=== PATIENT | female | born 1940 | race Caucasian/White ===

== ENCOUNTER 2016-07-16 18:05 | Emergency (ER) | payer OTHER ==
--- NOTE | 2016-07-16 19:20 | PROVIDER DOCUMENTATION ---
HPI-Musculoskeletal Pain/Inj - GENERAL Chief Complaint: Extremity Pain Stated Complaint: BRUISE/KNOT Time Seen by Provider: 07/16/16 18:54 Source: patient - HX OF PRESENT ILLNESS-MUSKULOSKELTAL Nature of Presenting Problem: PT C/O OF PAIN TO HER UPPER RIGHT FOREARM THERE IS BRUISING PRESENT,TENDER TO TOUCH NO DEFORMITIES NOTED.PT DENIES HITTING HIT ON ANYTHING OR FALLING. Quality of Pain: reports: aching Severity in ED: mild Onset/Duration: 24 hours ago Timing: still present Modifying Factors: improves with: palpation Any recent injury?: No Locality of Occurance: Home Similar Symptoms Previously?: No Recently seen or treated by another doctor?: No - UPPER EXTREMITY PAIN/INJURY Extremities Pain Location: forearm: right Context / Method of Injury: reports: unknown Associated Symptoms: reports: denies symptoms Review of Systems - Adult - REVIEW OF SYSTEMS - ADULT Constitutional: denies: chills, fever, fatique Cardiovascular: denies: chest pain, irregular heart rate, palpitations Respiratory: denies: cough, shortness of breath, wheezing Gastrointestinal: denies: abdominal pain, diarrhea, nausea, vomiting Genitourinary: denies: dysuria, flank pain, hematuria Musculoskeletal: denies: back pain, muscle aches, muscle weakness Integumentary: reports: other (BRUISING PRESENT TO HER UPPER RIGHT FOREARM.). denies: hives, itching, rash All Other Systems: Reviewed and Negative Past History - Adult - PAST MEDICAL HISTORY-ADULT Review of Records: reports: Old Records Reviewed, Nursing Assessment Review, Medications Reviewed Cardiovascular: reports: HTN Neurological: reports: dementia Psychiatric: reports: anxiety, depression - PRIOR SURGERIES/PROCEDURES Surgical/Procedure History: reports: reviewed, not pertinent - PRIOR HOSPITALIZATIONS Prior Hospitalizations: reports: none - IMMUNIZATION STATUS Childhood Immunizations: See Nurse Assessment Flu Vaccine: See Nurse Assessment - FAMILY HISTORY Family History: reviewed, not pertinent - SOCIAL HISTORY Smoking: quit greater than 1 year Substance Use: none/never Alcohol Use Frequency: never Living Situation: family Physical Exam-Injury Related - Physical Exam-Injury Related Initial Vital Signs Reviewed: Yes General Appearance: appears well, alert, no apparent distress Eyes: PERRL/EOMI, pink conjunctivae, fundi clear, no AV nicking Neck: non-tender, full range of motion, supple Respiratory: chest non-tender, lungs clear, normal breath sounds, no pleuratic chest pain, no respiratory distress, no accessory muscle use Cardiovascular: normal peripheral pulses, regular rate, rhythm, no edema, no gallop, no JVD Extremity: normal range of motion, non-tender, normal gait, normal inspection, normal capillary refill Integumentary: ecchymosis, tenderness. negative: swelling, laceration Psych/Mental Status: normal mood/affect, normal thought content, normal thought process, oriented x 3 - Glascow Coma Score Best Eye Response ([place]): (4) open spontaneously Best Verbal Response ([place]): (5) oriented Best Motor Response ([place]): (6) obeys commands [place] Total: 15 Progress - XRAY 1 XRAY: Right XRAY Study: Forearm Impression: Normal XRAY Interpretation: NORMAL Departure - Departure Time of Disposition Order: 21:12 DIAGNOSIS: Contusion Qualifiers: Encounter type: initial encounter Contusion area: forearm Disposition: HOME 01 Certified Medical Emergency: Emergent Condition: Good Additional Instructions: ED Follow Up Instructions: You have been treated by a care provider in the Emergency Department. These instructions are being provided to you so you can have an understanding of how to care for yourself upon discharge. Upon discharge from the Emergency Department, you are responsible for making arrangements for follow-up care by a physician of your choice. Take all prescribed medications as directed. Return to the Emergency Department immediately for any new or worsening symptoms. You may call the Physician Referral phone number at [phone] to obtain a list of Physicians who are taking new patients. Attestation - Scribe Verification/Attestation Scribe:: Robe Quinones Acting as Scribe for:: Otto Judge Scribe documention review:: This chart was documented by a scribe and accurately reflects the service the provider performed and the decisions made by the provider.
[2016-07-16 19:57] LABS: MANUAL DIFF NEEDED? NO
[2016-07-16 19:58] LABS: BASO% 0.2 % (0.0-0.8); EOS# 0.01 X1000 (0.0-0.7); EOS% 0.2 % (0.0-10.0); HEMATOCRIT 39.7 % (37.0-47.0); HEMOGLOBIN 12.9 g/dL (12.0-16.0); LYMPH# 1.86 X1000 (1.2-3.4); MCH 29.7 PG (27-31); MCHC 32.5 g/dL (33-37); MCV 91.5 FL (81-99); MONO# 0.51 X1000 (0.11-0.59); MONO% 11.2 % (1.7-9.3); MPV 10.5 FL (7.4-10.4); NEUT% 47.4 % (42.2-75.2); PLT 235 X1000 (130-400); RBC 4.34 XMIL (4.2-5.4)
[2016-07-16 20:31] LABS: ALBUMIN 4.5 g/dL (3.5-5.0); CALCIUM 9.5 mg/dL (8.8-10.2); POTASSIUM 4.2 mmol/L (3.5-5.1); TOTAL BILIRUBIN 0.5 mg/dL (0.20-1.00); TOTAL PROTEIN 7.2 g/dL (6.3-8.3)
[2016-07-16 20:34] LABS: INR 0.96 (0.86-1.15); PROTIME 13.1 Seconds (12.1-15.5)
[2016-07-16 20:35] LABS: PTT PL 34.5 Seconds (22.6-43.9)
[2016-07-16 21:25] VITALS: BP 132/80
--- NOTE | 2016-07-17 07:50 | Diag Imaging Result Document ---
PROCEDURE NAME: FOREARM-RIGHT - 07/16/2016 RIGHT FOREARM, TWO VIEWS: FINDINGS: No fracture. No dislocation. No other bony abnormality. IMPRESSION: Negative exam.
== END 2016-07-16 21:25 | disposition home or self-care (01) ==
LOC: P.ED 18:05
DX: S50.11XA Contusion of right forearm, initial encounter (principal); M79.631 Pain in right forearm; I10 Essential (primary) hypertension; Z87.891 Personal history of nicotine dependence
CPT/HCPCS: 80053; 85025; 85379; 85610; 85730; 99283